=== PATIENT | female | born 1980 | race Caucasian/White ===

== ENCOUNTER 2022-05-11 11:06 | Observation (INO) | payer BC ==
[~2022-05-11] VITALS: Ht 162.6 cm; Wt 72.1 kg
[2022-05-11] MEDS ORDERED: TERBUTALINE SULFATE 1 MG/ML VIAL SUBCUT PRN (12:45)
[2022-05-11] MEDS ORDERED: LR 1,000 ML IV SCH (12:45)
[2022-05-11] MEDS ORDERED: TERBUTALINE SULFATE 1 MG/ML VIAL ONE (12:47)
== END 2022-05-11 16:45 | disposition home or self-care (01) ==
LOC: SPU 11:06
PROVIDERS: ADMIT Specialist; ATTEND Specialist
DX: O46.92 Antepartum hemorrhage, unspecified, second trimester (principal); O26.892 Other specified pregnancy related conditions, second trimester; R10.9 Unspecified abdominal pain; Z3A.25 25 weeks gestation of pregnancy
CPT/HCPCS: 96372; 81002; 76805; J3105; G0378; G0379; 59899

== ENCOUNTER 2022-05-16 10:22 | Observation (INO) | payer BC ==
[~2022-05-16] VITALS: Ht 162.6 cm; Wt 72.6 kg
[2022-05-16] MEDS: NIFEdipine (O.B. USE ONLY) 10 MG CAPSULE PO SCH ×2 (05:30→23:35)
[2022-05-16] MEDS ORDERED: NIFEdipine (O.B. USE ONLY) 10 MG CAPSULE PO ONE (20:15)
[2022-05-17] MEDS: NIFEdipine (O.B. USE ONLY) 10 MG CAPSULE PO SCH ×2 (12:04→18:11)
== END 2022-05-17 20:32 | disposition home or self-care (01) ==
LOC: SPU 10:22
PROVIDERS: ADMIT Specialist; ATTEND Specialist
DX: O46.92 Antepartum hemorrhage, unspecified, second trimester (principal); O13.2 Gestational [pregnancy-induced] hypertension without significant proteinuria, second trimester; Z3A.26 26 weeks gestation of pregnancy
CPT/HCPCS: G0378 ×2

== ENCOUNTER 2022-07-11 11:09 | Inpatient (IN) | payer BC ==
[~2022-07-11] VITALS: Ht 165.1 cm; Wt 83.9 kg
[2022-07-11] MEDS ORDERED: NALBUPHINE HCL 10 MG/ML AMP IM PRN (14:30)
[2022-07-11] MEDS ORDERED: LR 500 ML IV ONE ×2 (14:30→15:45)
[2022-07-11] MEDS ORDERED: OXYTOCIN/0.9 % SODIUM CHLORIDE 1,000 ML IV SCH ×2 (14:30→20:30)
[2022-07-11] MEDS ORDERED: TERBUTALINE SULFATE 1 MG/ML VIAL SUBCUT ONE (14:30)
[2022-07-11 14:59] LABS: BASOPHILS % (AUTO) 0.1 % (0.0-2.0); EOSINOPHILS % (AUTO) 0.1 % (0.0-4.0); HEMATOCRIT 35.7 % (36-48); LYMPHOCYTES # (AUTO) 1.5 K/uL (1.0-5.5); LYMPHOCYTES % (AUTO) 7.4 % (20.5-51.5); MEAN CORPUSCULAR HEMOGLOBIN 29 pg (27-31); MEAN CORPUSCULAR HGB CONC 34 % (32-36); MEAN CORPUSCULAR VOLUME 87 fL (79.0-98.0); MONOCYTES % (AUTO) 5.1 % (1.7-9.3); NEUTROPHILS % (AUTO) 87.3 % (40.0-70.0); PLATELET COUNT (AUTO) 309 K/uL (130-430); RED BLOOD CELL COUNT(AUTO) 4.11 MIL/uL (4.2-6.2); RED CELL DISTRIBUTION WIDTH 12.6 % (9.0-15.0); WHITE BLOOD COUNT (AUTO) 20.6 K/uL (4.8-10.8)
[2022-07-11] MEDS ORDERED: AMPICILLIN SODIUM 2 GM in NS 100 ML IV ONE (15:00)
[2022-07-11] MEDS ORDERED: ROPIVACAINE HCL/PF 0.2% 200 ML ONE (15:08)
[2022-07-11] MEDS ORDERED: fentaNYL CITRATE/PF 100 MCG/2 ML AMP ONE (15:08)
[2022-07-11] MEDS: LR 1,000 ML IV SCH ×2 (15:37→15:38)
[2022-07-11] MEDS ORDERED: FENT2mCg/mL-ROPIVA0.2%/NS EPID 200 ML EP SCH (15:45)
[2022-07-11] MEDS ORDERED: AMPICILLIN SODIUM 1 GM in NS 50 ML IV SCH (19:00)
[2022-07-11] MEDS ORDERED: LIDOCAINE PF 1% 30ML(POUR BTL) INJ ONE (19:13)
[2022-07-11] MEDS ORDERED: NALOXONE HCL 0.4 MG/ML AMP (NARCAN) ONE (19:13)
[2022-07-11] MEDS ORDERED: LIGHT MINERAL OIL 10 ML VIAL MC ONE (19:13)
[2022-07-11] MEDS ORDERED: OXYCODONE/ACETAMINOPHEN 5-325 TABLET PO PRN ×2 (20:30)
[2022-07-11] MEDS ORDERED: DIPHTH,PERTUSS(ACELL),TET VAC 0.5 ML VIAL (Tdap) I.M. PRN (20:30)
[2022-07-11] MEDS ORDERED: ANUSOL 1 EA SUPP.RECT (PREPARATION H) RC PRN (20:30)
[2022-07-11] MEDS ORDERED: METHYLERGONOVINE MALEATE 0.2 MG TABLET PO PRN (20:30)
[2022-07-11] MEDS ORDERED: OXYTOCIN/0.9 % SODIUM CHLORIDE 1,000 ML IV ONE (20:30)
[2022-07-11] MEDS ORDERED: HYDROCORTISONE 0.5% CREAM 28.4 GM CREAM.GM. TP PRN (20:30)
[2022-07-11] MEDS ORDERED: RHO(D) IMMUNE GLOBULIN/MALTOSE 1500 UNITS/1.3 ML (WINHRO) IM PRN (20:30)
[2022-07-11] MEDS ORDERED: DERMOPLAST SPRAY TP PRN (20:30)
[2022-07-11] MEDS ORDERED: WITCH HAZEL LEAF 1 MED.PAD MED.PAD TP PRN (20:30)
[2022-07-11] MEDS ORDERED: NALOXONE HCL 0.4 MG/ML AMP (NARCAN) IVP PRN (20:30)
[2022-07-11] MEDS ORDERED: MEASLES,MUMPS&RUBELLA VACC/PF 12500 UNIT/0.5 ML VIAL SUBQ PRN (20:30)
[2022-07-11] MEDS ORDERED: HYDROcodone/ACETAMIN 5-325 MG TAB (NORCO/ VICODIN) PO PRN (20:30)
[2022-07-11] MEDS ORDERED: LANOLIN 7 GM OINT. TP PRN (20:30)
[2022-07-11] MEDS ORDERED: TEMAZEPAM 15 MG CAPSULE PO PRN (21:00)
[2022-07-11] MEDS ORDERED: SENNOSIDES/DOCUSATE SODIUM 1 TAB TABLET(SENOKOT-S) PO SCH (21:00)
[2022-07-12] MEDS: IBUPROFEN 600 MG TABLET PO SCH ×4 (00:43→18:08)
[2022-07-12 07:31] LABS: HEMATOCRIT 32.8 % (36-48); HEMOGLOBIN 11.1 g/dL (12.0-16.0); MEAN CORPUSCULAR HEMOGLOBIN 30 pg (27-31); MEAN CORPUSCULAR HGB CONC 34 % (32-36); MEAN CORPUSCULAR VOLUME 88 fL (79.0-98.0); PLATELET COUNT (AUTO) 292 K/uL (130-430); RED BLOOD CELL COUNT(AUTO) 3.72 MIL/uL (4.2-6.2); RED CELL DISTRIBUTION WIDTH 12.1 % (9.0-15.0); WHITE BLOOD COUNT (AUTO) 27.8 K/uL (4.8-10.8)
[2022-07-12] MEDS ORDERED: DOCUSATE SODIUM 100 MG CAPSULE PO SCH (09:00)
[2022-07-12 10:56] LABS: BAND % (MANUAL) 4 % (0-6); BASOPHILS % (MANUAL) 0 % (0-2); EOSINOPHILS % (MANUAL) 0 % (0-7); LYMPHOCYTES % (MANUAL) 10 % (20-46); MONOCYTES % (MANUAL) 2 % (0-11)
[2022-07-13] MEDS: IBUPROFEN 600 MG TABLET PO SCH ×4 (00:17→18:29)
[2022-07-15 21:06] LABS: FTA-Ab (T PALLIDUM) Non Reactive (Non Reactive)
== END 2022-07-13 20:25 | disposition home or self-care (01) | DRG 805 ==
LOC: SPU 11:09 → OBSVTOIN 11:09
PROVIDERS: ADMIT Specialist; ATTEND Specialist
PROC: 10E0XZZ Delivery of Products of Conception, External Approach (ICD-10-PCS; principal; 2022-07-11)
PROC: 0HQ9XZZ Repair Perineum Skin, External Approach (ICD-10-PCS; 2022-07-11)
PROC: 3E0R3BZ Introduction of Anesthetic Agent into Spinal Canal, Percutaneous Approach (ICD-10-PCS; 2022-07-11)
PROC: 00HU33Z Insertion of Infusion Device into Spinal Canal, Percutaneous Approach (ICD-10-PCS; 2022-07-11)
DX: O60.14X0 Preterm labor third trimester with preterm delivery third trimester, not applicable or unspecified (principal); O45.93 Premature separation of placenta, unspecified, third trimester; Z37.0 Single live birth; O70.0 First degree perineal laceration during delivery; Z3A.34 34 weeks gestation of pregnancy
CPT/HCPCS: 36415; 85007; 85025; 85027; 86592; 86780; 86886; 86900; 86901; 88307; J0290; J2001; J2310; J2590; J3010